=== PATIENT | female | born 1980 | race African-American/Black ===

== ENCOUNTER 2017-03-01 20:25 | Emergency (ER) | payer SELFPAY ==
[~2017-03-01] VITALS: Ht 162.6 cm; Wt 77.1 kg
[2017-03-01 20:48] VITALS: BP 141/66
--- NOTE | 2017-03-01 20:57 | PHYS DOC ---
Past Medical History Past Medical History: Gallstones, Hypertension, Other Additional Past Medical Histor: CARDIOMYOPATHY Past Surgical History: Cholecystectomy, Other Additional Past Surgical Histo: GALL STONE REMOVAL Alcohol Use: None Drug Use: None Adult General Chief Complaint Chief Complaint: EYE PROBLEMS HPI HPI Patient is a 36 year old female presenting to the emergency department for evaluation of left upper eyelid twitching that she has noticed for the past 3 days. He says he can happen from anywhere from every 1 minute to one hour. She denies any vision changes fevers chills nausea vomiting or other systemic symptoms. She does not wear glasses or contacts. Review of Systems Review of Systems Constitutional: Denies fever or chills [] Eyes: Denies change in visual acuity, redness, or eye pain [] Allergies Allergies Allergies Coded Allergies Type Severity Reaction Last Updated Verified Penicillins Allergy Unknown 10/26/13 Yes amoxicillin Allergy Unknown 10/26/13 Yes Physical Exam Physical Exam Constitutional: Well developed, well nourished, no acute distress, non-toxic appearance. [] Eyes: PERRLA, EOMI, conjunctiva normal, no discharge. [] Current Patient Data Vital Signs Vital Signs Date Time Temp Pulse Resp B/P (MAP) Pulse Ox O2 Delivery O2 Flow Rate FiO2 03/01/17 20:48 98.3 85 18 99 Room Air 98.3 EKG EKG [] Radiology/Procedures Radiology/Procedures [] Course & Med Decision Making Course & Med Decision Making Patient with blepharospasm from unknown etiology. Based off literature search most of the causes her unknown possibly medication related but none of her medications are noted to cause it online search. If there is severe spasm that she cannot open her eyes sometimes it requires injections or surgeries but her case is fairly mild at this time. Patient recommended to follow with manager transit and/or a neurologist and come back to the ER with any concerns. Dragon Disclaimer Dragon Disclaimer This electronic medical record was generated, in whole or in part, using a voice recognition dictation system. Departure Departure Impression: Primary Impression: Blepharospasm Disposition: 01 HOME, SELF-CARE Condition: GOOD Referrals: YARELIS ESPINOSA MD (PCP) Kasey ROSS MD Patient Instructions: Blepharospasm Additional Instructions: TRY AND FOLLOW WITH THE WINTER INTERN AND/OR YOUR PCP FOR F/U. THANK YOU! YARELIS RODRÍGUEZ DO Mar 01, 2017 20:57
== END 2017-03-01 21:10 | disposition home or self-care (01) ==
LOC: ER 20:25
DX: G24.5 Blepharospasm (principal); I10 Essential (primary) hypertension; Z88.0 Allergy status to penicillin; Z88.1 Allergy status to other antibiotic agents
CPT/HCPCS: 99281

== ENCOUNTER 2017-06-16 12:10 | Emergency (ER) | payer OTHER ==
[~2017-06-16] VITALS: Ht 162.6 cm; Wt 77.1 kg
[2017-06-16 13:20] LABS: BASO % 0 % (0-3); EOS % 2 % (0-3); HEMATOCRIT 30.2 % (36.0-47.0); HEMOGLOBIN 9.9 g/dL (12.0-15.5); LYMPH # 1.5 x10^3/uL (1.0-4.8); LYMPH % 33 % (24-48); MEAN CORPUSCULAR HEMOGLOBIN 27 pg (25-35); MEAN CORPUSCULAR HGB CONC 33 g/dL (31-37); MEAN CORPUSCULAR VOLUME 83 fL (79-100); MONO % 6 % (0-9); NEUT % 59 % (31-73); PLATELET COUNT 186 x10^3/uL (140-400); RED BLOOD COUNT 3.62 x10^6/uL (3.50-5.40); RED CELL DISTRIBUTION WIDTH 15.1 % (11.5-14.5); WHITE BLOOD COUNT 4.6 x10^3/uL (4.0-11.0)
--- NOTE | 2017-06-16 13:20 | PHYS DOC ---
Past Medical History Past Medical History: CHF, Gallstones, Hypertension, Other Additional Past Medical Histor: CARDIOMYOPATHY Past Surgical History: Cholecystectomy, Other Additional Past Surgical Histo: GALL STONE REMOVAL Alcohol Use: None Drug Use: None Adult General Chief Complaint Chief Complaint: NEURO SYMPTOMS/DEFICITS [facility] HPI Patient is a 36 year old female presents to the emergency department with a history of left frontal and maxillary pressure with left arm numbness and tingling on and off for the last 2 days. Patient denies blurred vision, denies chest pain, shortness of air, or any injuries. Review of Systems Review of Systems Constitutional: Denies fever or chills [] Eyes: Denies change in visual acuity, redness, or eye pain [] HENT: Denies nasal congestion or sore throat. Pressure to the left frontal and maxillary sinus area Respiratory: Denies cough or shortness of breath [] Cardiovascular: No additional information not addressed in HPI [] GI: Denies abdominal pain, nausea, vomiting, bloody stools or diarrhea [] : Denies dysuria or hematuria [] Musculoskeletal: Denies back pain or joint pain [] Integument: Denies rash or skin lesions [] Neurologic: Denies headache, focal weakness. C/o numbness and tingling on and off to the left arm Endocrine: Denies polyuria or polydipsia [] All other systems were reviewed and found to be within normal limits, except as documented in this note. Allergies Allergies Allergies Coded Allergies Type Severity Reaction Last Updated Verified Penicillins Allergy Unknown 10/26/13 Yes amoxicillin Allergy Unknown 10/26/13 Yes Physical Exam Physical Exam Constitutional: Well developed, well nourished, no acute distress, non-toxic appearance. [] HENT: Normocephalic, atraumatic, bilateral external ears normal, oropharynx moist, no oral exudates, nose normal. Bilateral tympanic membranes are normal. Patient with left frontal and left maxillary sinus tenderness noted. Patient with left nares swelling Eyes: PERRLA, EOMI, conjunctiva normal, no discharge. [] Neck: Normal range of motion, no tenderness, supple, no stridor. [] Cardiovascular:Heart rate regular rhythm, no murmur [] Lungs & Thorax: Bilateral breath sounds clear to auscultation [] Skin: Warm, dry, no erythema, no rash. [] Back: No tenderness Extremities: No tenderness, no cyanosis, no clubbing, ROM intact, no edema. [] Neurologic: Alert and oriented X 3, normal motor function, normal sensory function, no focal deficits noted. Patient with equal sensation bilaterally, equal director of women's services bilaterally. Psychologic: Affect normal, judgement normal, mood normal. [] Current Patient Data Vital Signs Vital Signs Date Time Temp Pulse Resp B/P (MAP) Pulse Ox O2 Delivery O2 Flow Rate FiO2 06/16/17 12:20 98.7 74 16 120/62 (81) 96 Room Air 98.7 Lab Values Laboratory Tests Test 06/16/17 12:53 06/16/17 12:55 White Blood Count 4.6 x10^3/uL (4.0-11.0) Red Blood Count 3.62 x10^6/uL (3.50-5.40) Hemoglobin 9.9 g/dL (12.0-15.5) L Hematocrit 30.2 % (36.0-47.0) L Mean Corpuscular Volume 83 fL (79-100) Mean Corpuscular Hemoglobin 27 pg (25-35) Mean Corpuscular Hemoglobin Concent 33 g/dL (31-37) Red Cell Distribution Width 15.1 % (11.5-14.5) H Platelet Count 186 x10^3/uL (140-400) Neutrophils (%) (Auto) 59 % (31-73) Lymphocytes (%) (Auto) 33 % (24-48) Monocytes (%) (Auto) 6 % (0-9) Eosinophils (%) (Auto) 2 % (0-3) Basophils (%) (Auto) 0 % (0-3) Neutrophils # (Auto) 2.7 x10^3uL (1.8-7.7) Lymphocytes # (Auto) 1.5 x10^3/uL (1.0-4.8) Monocytes # (Auto) 0.3 x10^3/uL (0.0-1.1) Eosinophils # (Auto) 0.1 x10^3/uL (0.0-0.7) Basophils # (Auto) 0.0 x10^3/uL (0.0-0.2) Sodium Level 142 mmol/L (136-145) Potassium Level 3.6 mmol/L (3.5-5.1) Chloride Level 105 mmol/L (98-107) Carbon Dioxide Level 28 mmol/L (21-32) Anion Gap 9 (6-14) Blood Urea Nitrogen 10 mg/dL (7-20) Creatinine 0.5 mg/dL (0.6-1.0) L Estimated GFR (Cockcroft-Gault) 168.9 BUN/Creatinine Ratio 20 (6-20) Glucose Level 100 mg/dL (70-99) H Calcium Level 9.1 mg/dL (8.5-10.1) Total Bilirubin 0.6 mg/dL (0.2-1.0) Aspartate Amino Transferase (AST) 13 U/L (15-37) L Alanine Aminotransferase (ALT) 20 U/L (14-59) Alkaline Phosphatase 59 U/L (46-116) Troponin I Quantitative < 0.017 ng/mL (0.000-0.055) Total Protein 7.4 g/dL (6.4-8.2) Albumin 3.4 g/dL (3.4-5.0) Albumin/Globulin Ratio 0.9 (1.0-1.7) L Urine Collection Type Void Urine Color Yellow Urine Clarity Clear Urine pH 7.5 Urine Specific [place] 1.020 Urine Protein Negative mg/dL (NEG-TRACE) Urine Glucose (UA) Negative mg/dL (NEG) Urine Ketones (Stick) Negative mg/dL (NEG) Urine Blood Negative (NEG) Urine Nitrite Negative (NEG) Urine Bilirubin Negative (NEG) Urine Urobilinogen Dipstick 2.0 mg/dL (0.2 mg/dL) Urine Leukocyte Esterase Negative (NEG) Urine RBC 0 /HPF (0-2) Urine WBC 1-4 /HPF (0-4) Urine Squamous Epithelial Cells Many /LPF Urine Bacteria Few /HPF (0-FEW) Urine Mucus Mod /LPF Laboratory Tests 06/16/17 12:53 Laboratory Tests 06/16/17 12:53 EKG EKG EKG completed at 1245 with a heart rate of 74 sinus rhythm noted no STEMI per Dr Greene[] Radiology/Procedures Radiology/Procedures [] Course & Med Decision Making Course & Med Decision Making Pertinent Labs and Imaging studies reviewed. (See chart for details) CBC, CMP, troponin, urinalysis negative. CT scan of the head was negative. Patient does have the left frontal and maxillary sinus tenderness as well as swelling in the naris patient will be placed on Bactrim for sinus infection. She 'll be recommended to follow up with primary care physician X7 to 10 days. Patient agrees with discharge instructions treatment regimens and follow-up recommendations. I've spoken with the patient and/or caregivers. I've explained the patient's condition, diagnosis and treatment plan based on information available to me at this time. I've answered the patient's and/or caregivers questions and addressed any concerns. The patient and/or caregivers have a good understanding the patient's diagnosis, condition and treatment plan as can be expected at this point. Vital signs have been stabilized. The patient's condition is stable for discharge from the emergency department. The patient will pursue further outpatient evaluation with her primary care provider or other designated consulting physician as outlined in the discharge instructions. Patient and/or caregivers are agreeable to this plan of care and follow-up instructions have been explained in detail. The patient and/or caregivers have received these instructions in written format and expressed understanding of these discharge instructions. The patient and her caregivers are aware that if any significant change in condition or worsening of symptoms should prompt him to immediately return to this of the closest emergency department. If an emergent department is not readily available I would encourage him to call 911. [] Dragon Disclaimer Dragon Disclaimer This electronic medical record was generated, in whole or in part, using a voice recognition dictation system. Departure Departure Impression: Primary Impression: Sinusitis Additional Impression: Left arm numbness Disposition: 01 HOME, SELF-CARE Condition: STABLE Referrals: YARELIS ESPINOSA MD (PCP) Patient Instructions: Sinusitis, [id number] Additional Instructions: Activity as tolerated. Medications as prescribed. Tylenol or ibuprofen for fever chills or generalized body aches and discomfort. He may try Tylenol Sinus [id number] to help with the sinus pressure. Drink plenty of fluids such as water or Gatorade or propel. Follow-up to primary care physician in the next 3-5 days. Return back to emergency department for signs and symptoms that become worse. Scripts Sulfamethoxazole/Trimethoprim (BACTRIM DS TABLET) 1 Each Tablet 1 TAB PO BID, #20 TAB Prov: DEANN THAKKAR APRN 06/16/17 Problem Qualifiers Primary Impression: Sinusitis Sinusitis location: unspecified location Chronicity: unspecified Qualified Codes: J32.9 - Chronic sinusitis, unspecified DEANN THAKKRA IRRIGATOR GRAVITY FLOW Jun 16, 2017 13:20
[2017-06-16 13:23] LABS: BILIRUBIN,URINE NEGATIVE (NEG); GLUCOSE,URINE NEGATIVE (NEG); NITRITE,URINE NEGATIVE (NEG); PH,URINE 7.5; PROTEIN,URINE NEGATIVE (NEG-TRACE)
[2017-06-16 13:30] LABS: SQUAMOUS EPITHELIAL CELL,UR MANY /LPF
[2017-06-16 13:31] LABS: BACTERIA,URINE FEW /HPF (0-FEW); RBC,URINE 0 /HPF (0-2)
[2017-06-16 13:35] LABS: CALCIUM 9.1 mg/dL (8.5-10.1); CREATININE 0.5 mg/dL (0.6-1.0); GFR 168.9; POTASSIUM 3.6 mmol/L (3.5-5.1)
[2017-06-16 13:41] LABS: ALBUMIN 3.4 g/dL (3.4-5.0); ALBUMIN/GLOBULIN RATIO 0.9 (1.0-1.7); TOTAL BILIRUBIN 0.6 mg/dL (0.2-1.0); TOTAL PROTEIN 7.4 g/dL (6.4-8.2)
[2017-06-16 13:53] VITALS: BP 123/61
--- NOTE | 2017-06-16 14:02 | RAD ---
CT of the head without contrast, 06/16/2017: History: Left facial pressure and left arm numbness The heart size and pulmonary vascularity are normal. No pulmonary infiltrates are seen. There is no evidence of pleural fluid. IMPRESSION: No acute intracranial abnormality is detected. PQRS Compliance Statement: One or more of the following individualized dose reduction techniques were utilized for this examination: 1. Automated exposure control 2. Adjustment of the mA and/or kV according to patient size 3. Use of iterative reconstruction technique
[2017-06-16] MEDS ORDERED: SULF1TAB24 PO (14:17)
--- NOTE | 2017-06-16 14:51 | EKG ---
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
== END 2017-06-16 14:32 | disposition home or self-care (01) ==
LOC: ER 12:10
DX: J32.9 Chronic sinusitis, unspecified (principal); R20.0 Anesthesia of skin; I11.0 Hypertensive heart disease with heart failure; I50.9 Heart failure, unspecified; Z88.0 Allergy status to penicillin; Z88.1 Allergy status to other antibiotic agents
CPT/HCPCS: 36415; 70450; 80053; 81001; 81025; 84484; 85025; 93005; 99285-25